=== PATIENT | female | born 1965 | race Caucasian/White ===

== ENCOUNTER 2018-06-07 15:36 | Emergency (ER) | payer MEDICAID ==
[~2018-06-07] VITALS: Ht 162.6 cm; Wt 60.8 kg
[2018-06-07 16:06] VITALS: BP 124/77
== END 2018-06-07 16:39 | disposition home or self-care (01) ==
LOC: ER 15:40
DX: M65.351 Trigger finger, right little finger (principal); F32.9 Major depressive disorder, single episode, unspecified; Z88.8 Allergy status to other drugs, medicaments and biological substances; Z88.1 Allergy status to other antibiotic agents; Z88.6 Allergy status to analgesic agent
CPT/HCPCS: A4606; Z7610